=== PATIENT | female | born 1975 | race African-American/Black ===

== ENCOUNTER 2018-05-05 20:35 | Inpatient (IN) | payer MEDICAID ==
[~2018-05-05] VITALS: Ht 165.1 cm; Wt 122.5 kg
[2018-05-05] MEDS ORDERED: SODIUM CHLORIDE 0.9% 1,000 ML IV ONE (20:45)
[2018-05-05] MEDS ORDERED: ONDANSETRON HCL 4MG/2ML INJ IV STA (20:45)
[2018-05-05 23:08] LABS: BASOPHILS % 0.2 % (0.0-2.0); EOSINOPHILS % 0.6 % (0.0-5.0); HEMATOCRIT. 31.5 % (36.0-48.0); LYMPHOCYTES % 18.8 % (20.0-50.0); MEAN CORPUSCULAR HEMOGLOBIN 32.2 pg (28.0-32.0); MEAN CORPUSCULAR VOLUME 92.1 fL (81.0-99.0); MEAN PLATELET VOLUME 9.2 fl (7.4-10.4); MONOCYTES % 5.7 % (2.0-8.0); NEUTROPHILS % 74.7 % (40.0-76.0); PLATELET 178 x1000/uL (130-400); RED BLOOD CELL COUNT 3.42 mill/uL (4.2-5.4); RED CELL DISTRIBUTION WIDTH 13.3 % (11.6-14.6)
[2018-05-05 23:15] LABS: CHLORIDE 108 mEq/L (98-107)
[2018-05-05 23:16] LABS: PROTHROMBIN TIME 10.3 sec (9.1-11.1)
[2018-05-05 23:29] LABS: B-HCG QUANTITATIVE 572 mIU/mL (<3)
[2018-05-06] MEDS ORDERED: IPRATROPIUM/ALBUTEROL 0.5-3(2.5)MG/3ML NEB INH PRN (00:45)
[2018-05-06] MEDS ORDERED: ONDANSETRON HCL 4MG/2ML INJ IV PRN (00:45)
[2018-05-06] MEDS ORDERED: ACETAMINOPHEN 650MG SUPP PR PRN (00:45)
[2018-05-06] MEDS ORDERED: MISOPROSTOL 200MCG TABLET PO ONE (06:00)
[2018-05-06] MEDS: SODIUM CHLORIDE 0.9% 1,000 ML IV SCH ×2 (06:18→16:54)
[2018-05-06 06:51] LABS: HEMATOCRIT 30.7 % (36.0-48.0); HEMOGLOBIN 10.5 g/dL (12.0-16.0)
[2018-05-06 06:56] LABS: CLARITY URINE CLEAR (CLEAR); COLOR URINE YELLOW (YELLOW); KETONES URINE NEGATIVE (NEGATIVE); LEUKOCYTE ESTERASE URINE 1+ (NEGATIVE); NITRITE URINE NEGATIVE (NEGATIVE); OCCULT BLOOD URINE 3+ (NEGATIVE); PROTEIN URINE TRACE (NEGATIVE); SPECIFIC GRAVITY URINE 1.013 (1.005-1.030); UROBILINOGEN URINE 0.2 E.U./dL (0.2-1.0)
[2018-05-06 06:57] LABS: CHLORIDE 108 mEq/L (98-107)
[2018-05-06 07:10] LABS: CREATINE KINASE 61 IU/L (26-192)
[2018-05-06 07:12] LABS: CREATINE KINASE MB FRACTION < 1.0 ng/mL (0.5-3.6)
[2018-05-06 08:39] LABS: *AMPHETAMINES SCREEN URINE NEGATIVE (NEGATIVE); *BARBITURATES SCREEN URINE NEGATIVE (NEGATIVE); *BENZODIAZEPINES SCREEN URINE NEGATIVE (NEGATIVE)
[2018-05-06 08:40] LABS: *COCAINE SCREEN URINE NEGATIVE (NEGATIVE); METHADONE URINE SCREEN NEGATIVE (NEGATIVE); OPIATES URINE SCREEN NEGATIVE (NEGATIVE)
[2018-05-06 08:41] LABS: CANNABINOID URINE SCREEN NEGATIVE (NEGATIVE); PHENCYCLIDINE URINE SCREEN NEGATIVE (NEGATIVE)
[2018-05-06 14:55] VITALS: BP 109/66
[2018-05-06 16:00] VITALS: BP 109/66
[2018-05-06] MEDS ORDERED: TETANUS, DIPHTHERIA, PERTUSSIS VAC/PF 0.5ML (>7YR OLD) IM ONE (16:30)
[2018-05-06] MEDS ORDERED: MISOPROSTOL 200MCG TABLET PO NR (16:30)
[2018-05-06] MEDS ORDERED: INFLUENZA VIRUS VACCINE(AFLURIA) 0.5ML SYR IM ONE (16:30)
[2018-05-06 17:34] LABS: HEMATOCRIT 26.5 % (36.0-48.0); HEMOGLOBIN 9.2 g/dL (12.0-16.0)
[2018-05-06 18:04] LABS: CREATINE KINASE 53 IU/L (26-192)
[2018-05-06 18:05] LABS: CREATINE KINASE MB FRACTION < 1.0 ng/mL (0.5-3.6)
[2018-05-06 20:00] VITALS: BP 93/50
[2018-05-06] MEDS: ACETAMINOPHEN 325MG TABLET PO PRN (22:35)
[2018-05-06 23:30] LABS: HEMATOCRIT 25.1 % (36.0-48.0); HEMOGLOBIN 8.6 g/dL (12.0-16.0)
[2018-05-07] VITALS: BP 111/63
[2018-05-07] MEDS: SODIUM CHLORIDE 0.9% 1,000 ML IV SCH (03:28)
[2018-05-07 04:00] VITALS: BP 98/52
[2018-05-07 08:00] VITALS: BP 97/51
[2018-05-07] MEDS: ACETAMINOPHEN 325MG TABLET PO PRN (08:40)
[2018-05-07 10:05] LABS: BASOPHILS % 0.2 % (0.0-2.0); EOSINOPHILS % 0.9 % (0.0-5.0); HEMATOCRIT. 22.7 % (36.0-48.0); HEMOGLOBIN. 7.8 g/dL (12.0-16.0); LYMPHOCYTES % 26.4 % (20.0-50.0); MEAN CORPUSCULAR HEMOGLOBIN 32.3 pg (28.0-32.0); MEAN CORPUSCULAR VOLUME 93.5 fL (81.0-99.0); MONOCYTES % 6.1 % (2.0-8.0); NEUTROPHILS % 66.4 % (40.0-76.0); PLATELET 127 x1000/uL (130-400); RED BLOOD CELL COUNT 2.43 mill/uL (4.2-5.4); RED CELL DISTRIBUTION WIDTH 13.2 % (11.6-14.6)
[2018-05-07 12:00] VITALS: BP 100/52
[2018-05-07 14:49] VITALS: BP 100/52
== END 2018-05-07 16:00 | disposition home or self-care (01) | DRG 564 ==
LOC: ER 20:35 → 6EST 05-06 00:23 → UNDOADMIN 05-06 00:23 → 6EST 05-06 00:30 → EDBEDREQSVC 05-06 14:12 → ENRESERV 05-06 14:20
PROVIDERS: ADMIT Internal Medicine; ATTEND Internal Medicine
PROC: 30233N1 Transfusion of Nonautologous Red Blood Cells into Peripheral Vein, Percutaneous Approach (ICD-10-PCS; principal; 2018-05-06)
DX: O03.9 Complete or unspecified spontaneous abortion without complication (principal); E87.8 Other disorders of electrolyte and fluid balance, not elsewhere classified; E44.0 Moderate protein-calorie malnutrition; Z68.41 Body mass index [BMI] 40.0-44.9, adult; O98.511 Other viral diseases complicating pregnancy, first trimester; E66.01 Morbid (severe) obesity due to excess calories; O25.11 Malnutrition in pregnancy, first trimester; O99.011 Anemia complicating pregnancy, first trimester; F17.210 Nicotine dependence, cigarettes, uncomplicated; O99.211 Obesity complicating pregnancy, first trimester; D64.9 Anemia, unspecified; O99.281 Endocrine, nutritional and metabolic diseases complicating pregnancy, first trimester; O99.331 Smoking (tobacco) complicating pregnancy, first trimester; B00.9 Herpesviral infection, unspecified; Z3A.09 9 weeks gestation of pregnancy; Z71.6 Tobacco abuse counseling; Z71.3 Dietary counseling and surveillance
CPT/HCPCS: 36415; 36430; 76830; 76856; 80048; 80305; 82550; 82553; 84443; 84484; 84702; 85014; 85018; 86850; 86900; 86920; 90715; 93970; 96361; 96374; 99285; J2405; J7030; P9016